=== PATIENT | female | born 1945 | race African-American/Black ===

== ENCOUNTER 2017-07-05 16:49 | Emergency (ER) | payer SELFPAY ==
[~2017-07-05] VITALS: Ht 162.6 cm; Wt 70.0 kg
[2017-07-05 16:52] VITALS: BP 155/72
== END 2017-07-05 18:55 | disposition left against medical advice (07) ==
LOC: ER 17:16
DX: Z53.21 Procedure and treatment not carried out due to patient leaving prior to being seen by health care provider (principal)